=== PATIENT | female | born 1950 | race Caucasian/White ===

== ENCOUNTER 2022-08-12 08:22 | Emergency (ER) | payer MEDICARE, MEDICAID ==
[~2022-08-12] VITALS: Ht 157.5 cm; Wt 61.2 kg
[2022-08-12 08:22] VITALS: BP_SYST 136
--- NOTE | 2022-08-12 08:22 | NUR ---
BROUGHT IN BY [facility], TAKEN IMMEDIATELY TO CT SCAN. PT LAST KNOW WELL WAS 0800 YESTERDAY. PT MORE ALTERED THAN NORMAL. NO FACIAL DROOP NOTED. ++GEN WEAKNESS.
--- NOTE | 2022-08-12 08:30 | NUR ---
DR SHIRA Hill at bedside examining patient.
--- NOTE | 2022-08-12 08:40 | NUR ---
REPORT RECEIVED FROM [employer] CREWMEMBER, PT ASSESSED. DAUGHTER AT BEDSIDE. PT SLEEPING AROUSES TO TACTILE STIM, EYES OPEN, DOES NOT FOLLOW COMMANDS. DAUGHTER STATES THAT PT IS DIFF FROM HER NORMAL STATUS
[2022-08-12 09:04] LABS: BASOPHILS % (AUTO) 0.5 % (0.0-2.0); HEMATOCRIT 31.5 % (36-48); HEMOGLOBIN 10.6 g/dL (12.0-16.0); LYMPHOCYTES # (AUTO) 1.5 K/uL (1.0-5.5); LYMPHOCYTES % (AUTO) 15.1 % (20.5-51.5); MEAN CORPUSCULAR HEMOGLOBIN 30 pg (27-31); MEAN CORPUSCULAR HGB CONC 34 % (32-36); MEAN CORPUSCULAR VOLUME 88 fL (79.0-98.0); MONOCYTES # (AUTO) 0.8 K/uL (0.0-1.0); MONOCYTES % (AUTO) 8.1 % (1.7-9.3); NEUTROPHILS # (AUTO) 7.7 K/uL (1.8-7.7); NEUTROPHILS % (AUTO) 76.3 % (40.0-70.0); PLATELET COUNT (AUTO) 249 K/uL (130-430); RED BLOOD CELL COUNT(AUTO) 3.57 MIL/uL (4.2-6.2); RED CELL DISTRIBUTION WIDTH 13.1 % (9.0-15.0); WHITE BLOOD COUNT (AUTO) 10.1 K/uL (4.8-10.8)
[2022-08-12 09:07] LABS: ANION GAP 8 (5-15); CALCIUM 8.5 mg/dL (8.4-11.0); CHLORIDE 103 mmol/L (98-107); GLUCOSE 133 mg/dL (70-99); POTASSIUM 4.4 mmol/L (3.5-5.1); UREA NITROGEN, BLOOD 14 mg/dL (8-21)
[2022-08-12 09:21] LABS: ACETAMINOPHEN < 1 ug/mL (1-30); ALANINE AMINOTRANSFERASE 17 U/L (12-78); ALBUMIN 3.4 g/dL (3.4-4.8); ALCOHOL, BLOOD < 3 mg/dL (<10); ASPARTATE AMINOTRANSFERASE 21 U/L (10-37); C-REACTIVE PROTEIN QUANT < 0.2 mg/dL (0-0.5); TOTAL BILIRUBIN 0.6 mg/dL (0.0-1.0)
--- NOTE | 2022-08-12 09:22 | NUR ---
TRANSFER INFO [facility] DR. MORALES [phone] [facility] ETA 0906 PER CHUCK, PT IS GOING LVL. 2 STROKE. SPOKE TO CHUCK
--- NOTE | 2022-08-12 09:25 | NUR ---
REQUESTED CD SPOKE TO CALLUM
--- NOTE | 2022-08-12 09:30 | NUR ---
DAUGHTER AT BEDSIDE, PT STATUS UNCHANGED. RESP EASY MM PINK
[2022-08-12 09:38] LABS: ACETONE, SERUM NEGATIVE (NEGATIVE)
--- NOTE | 2022-08-12 10:23 | NUR ---
Patient to be transferred to [facility]. Is being transferred due to higher level of care. Receiving facility has accepting physician and available space. ER physician has signed transfer form. Patient or responsible alliance party has agreed to transfer and signed form. Patient belongings inventoried and will be sent with patient. Copy of nursing notes, lab reports, EKG, Physicians Orders and X-rays to be sent with patient. Report called to at receiving facility. Receiving physician is . ambulance service WAS called for transfer AND IS AT HOSP. ETA is .
[2022-08-12 10:30] VITALS: BP_SYST 142
== END 2022-08-12 10:23 | disposition short-term general hospital (02) ==
LOC: SED 08:22
DX: I62.9 Nontraumatic intracranial hemorrhage, unspecified (principal); I10 Essential (primary) hypertension; R41.0 Disorientation, unspecified; Z88.5 Allergy status to narcotic agent; Z91.013 Allergy to seafood; Z79.899 Other long term (current) drug therapy
CPT/HCPCS: 99285; 70450; 71045; 80053; 82009; 82550; 85025; 86140; 84484; 36415; 76376; 83605; G0482; G0480; G0481

== ENCOUNTER 2022-10-25 07:55 | Emergency (ER) | payer MEDICARE, OTHER ==
[~2022-10-25] VITALS: Ht 157.5 cm; Wt 54.4 kg
[2022-10-25 07:55] VITALS: BP_SYST 140
[2022-10-25] MEDS ORDERED: MV-M1CAP15 PO (08:05)
[2022-10-25] MEDS ORDERED: OLAN5TAB71 PO (08:05)
[2022-10-25] MEDS ORDERED: ACET325T PO (08:05)
[2022-10-25] MEDS ORDERED: SERT-436 PO (08:05)
[2022-10-25] MEDS ORDERED: AMLO5TAB4 PO (08:05)
[2022-10-25] MEDS ORDERED: CALC-939 PO (08:05)
[2022-10-25 09:09] LABS: ANION GAP 7 (5-15); CALCIUM 8.6 mg/dL (8.4-11.0); CHLORIDE 103 mmol/L (98-107); CREATININE 0.44 mg/dL (0.55-1.30); GLUCOSE 99 mg/dL (70-99); UREA NITROGEN, BLOOD 10 mg/dL (8-21)
[2022-10-25 09:12] LABS: INR 1.1 (0.8-1.2); PROTHROMBIN TIME 10.7 SECS (9.5-12.5)
[2022-10-25 09:14] LABS: ALANINE AMINOTRANSFERASE 16 U/L (12-78); ALBUMIN 2.8 g/dL (3.4-4.8); ASPARTATE AMINOTRANSFERASE 12 U/L (10-37); TOTAL BILIRUBIN 0.2 mg/dL (0.0-1.0)
[2022-10-25 09:18] LABS: ALCOHOL, BLOOD < 3 mg/dL (<10)
[2022-10-25 09:21] LABS: BASOPHILS % (AUTO) 0.6 % (0.0-2.0); EOSINOPHILS # (AUTO) 0.1 K/uL (0.0-0.4); EOSINOPHILS % (AUTO) 1.1 % (0.0-4.0); HEMATOCRIT 30.9 % (36-48); HEMOGLOBIN 10.3 g/dL (12.0-16.0); LYMPHOCYTES # (AUTO) 1.3 K/uL (1.0-5.5); LYMPHOCYTES % (AUTO) 17.2 % (20.5-51.5); MEAN CORPUSCULAR HEMOGLOBIN 28 pg (27-31); MEAN CORPUSCULAR HGB CONC 33 % (32-36); MEAN CORPUSCULAR VOLUME 84 fL (79.0-98.0); MONOCYTES # (AUTO) 0.6 K/uL (0.0-1.0); MONOCYTES % (AUTO) 7.3 % (1.7-9.3); NEUTROPHILS # (AUTO) 5.7 K/uL (1.8-7.7); NEUTROPHILS % (AUTO) 73.8 % (40.0-70.0); PLATELET COUNT (AUTO) 372 K/uL (130-430); RED BLOOD CELL COUNT(AUTO) 3.69 MIL/uL (4.2-6.2); RED CELL DISTRIBUTION WIDTH 15.2 % (9.0-15.0); WHITE BLOOD COUNT (AUTO) 7.8 K/uL (4.8-10.8)
[2022-10-25] MEDS ORDERED: LORazepam 2 MG/ML VIAL IVP ONE (11:45)
[2022-10-25] MEDS ORDERED: HALOPERIDOL LACTATE 5 MG/ML VIAL IVP ONE (11:45)
[2022-10-25] MEDS ORDERED: BENZTROPINE MESYLATE 2 MG/ 2 ML AMP IM ONE (11:45)
[2022-10-25 16:53] LABS: BILIRUBIN,URINE NEGATIVE (NEGATIVE); CLARITY/URINE CLEAR (CLEAR); COLOR,URINE YELLOW (YELLOW); GLUCOSE,URINE NEGATIVE (NEGATIVE); KETONES,URINE NEGATIVE (NEGATIVE); LEUKOCYTE ESTERASE ,URINE 2+ (NEGATIVE); NITRITE, URINE POSITIVE (NEGATIVE); PH,URINE 7.5 (5.0-8.0); PROTEIN URINE NEGATIVE (NEGATIVE); UROBILINOGEN,URINE 0.2 (0.2-1.0)
[2022-10-25 17:11] LABS: BARBITURATE, URINE NEGATIVE (NEG <=200); CANNABINOID, URINE NEGATIVE (NEG <=50); COCAINE, URINE NEGATIVE (NEG <=150); METHAMPHETAMINES SCREEN,URINE NEGATIVE (NEG <=500); OPIATE, URINE NEGATIVE (NEG <=100); PHENCYCLIDINE SCREEN,URINE NEGATIVE (NEG <=25); UR TRICYCLIC ANTIDEPRESSANTS NEGATIVE (NEG <=300); URINE AMPHETAMINE NEGATIVE (NEG <=500); URINE METHADONE NEGATIVE (NEG <=200); URINE OXYCODONE SCREEN NEGATIVE (NEG <=100); URINE PROPOXYPHENE SCREEN NEGATIVE (NEG <=300)
[2022-10-25 17:12] LABS: BENZODIAZEPINE, URINE POSITIVE (NEG <=150)
[2022-10-25 17:13] LABS: BLOOD, URINE TRACE (NEGATIVE)
[2022-10-25 17:49] LABS: BACTERIA,URINE MANY /HPF (None Seen); MUCUS,URINE None Seen /LPF (None Seen); RBC,URINE 0-3 /HPF (0-3); WBC,URINE 20-50 /HPF (0-3)
[2022-10-25 17:53] VITALS: BP_SYST 156
== END 2022-10-25 17:56 | disposition short-term general hospital (02) ==
LOC: SED 07:55
DX: S06.369A Traumatic hemorrhage of cerebrum, unspecified, with loss of consciousness of unspecified duration, initial encounter (principal); S40.011A Contusion of right shoulder, initial encounter; S70.01XA Contusion of right hip, initial encounter; R54 Age-related physical debility; I10 Essential (primary) hypertension; Z91.013 Allergy to seafood; Z88.5 Allergy status to narcotic agent; Z79.899 Other long term (current) drug therapy; Z20.822 Contact with and (suspected) exposure to COVID-19; W01.0XXA Fall on same level from slipping, tripping and stumbling without subsequent striking against object, initial encounter; Y93.89 Activity, other specified; Y92.89 Other specified places as the place of occurrence of the external cause; Y99.8 Other external cause status
CPT/HCPCS: 99291; 70450; 96374; 71045; 96375; 87426; 80307; 80053; 85025; 85610; 85730; 87086; 84484; 36415; 93005; 72100; 73030; 73502; 72125; 76376; 81000; 72170; 96372; G0482; J0515; J1630; J2060; 99285